=== PATIENT | female | born 1965 | race Caucasian/White ===

== ENCOUNTER 2017-07-18 12:19 | Day surgery (SDC) | payer BC ==
[~2017-07-18] VITALS: Ht 162.6 cm; Wt 114.0 kg
[2017-07-18] VITALS (7 sets, daily range): BP systolic 118–148; BP diastolic 56–90; PULSE 55–63; TEMP 97.5–97.6
[2017-07-18 13:21] LABS: ALBUMIN 4.2 gm/dL (3.5-5.0); BILIRUBIN,TOTAL 0.5 mg/dL (0.0-1.0); CALCIUM 9.2 mg/dL (8.4-10.2); CREATININE, serum 0.82 mg/dL (0.52-1.25); POTASSIUM 3.4 mmol/L (3.4-5.0); TOTAL PROTEIN 7.5 gm/dL (6.4-8.2)
[2017-07-18] MEDS ORDERED: MOTRIN 800800 MG/TAB PO (15:30)
[2017-07-18] MEDS ORDERED: PERCOCET 325 MG1 TA2 PO (15:30)
[2017-07-19 05:07] VITALS: BP 148/84; PULSE 65; TEMP 98.2
[2017-07-19 09:30] VITALS: BP 117/67; PULSE 65; TEMP 97.5
== END 2017-07-19 09:50 | disposition home or self-care (01) ==
LOC: SDCO 12:19 → SURG 19:46 → SDCO 07-19 09:50
PROVIDERS: Obstetrics & Gynecology
DX: N92.6 Irregular menstruation, unspecified (principal); E66.9 Obesity, unspecified; Z88.2 Allergy status to sulfonamides
CPT/HCPCS: OP; A4314; J0360; J0690; J1100; J1885; J2405; J2550; J2704; J2710; J3010; J7120; Q9968

== ENCOUNTER → 2021-04-24 | Outpatient (CLI) | payer BC ==
[~2021-04-24] MED LIST: MOTRIN 800800 MG/TAB PO; PERCOCET 325 MG1 TA2 PO
== END ==
LOC: COL.RAD 09:59
DX: M25.552 Pain in left hip (principal)
CPT/HCPCS: J3301; Q9967

== ENCOUNTER → 2021-08-10 | Outpatient (CLI) | payer BC | LOC: COL.RAD 09:13 | DX: M16.12 Unilateral primary osteoarthritis, left hip (principal) | CPT/HCPCS: J3301; Q9967 ==

== ENCOUNTER 2022-01-25 13:14 | Outpatient (RCR) | payer BC | END 2022-02-11 | disposition still patient (30) | LOC: WSPT | DX: I89.0 Lymphedema, not elsewhere classified (principal) ==